=== PATIENT | female | born 2000 | race Caucasian/White ===

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

== ENCOUNTER → 2021-01-06 | Outpatient (CLI) | payer BC ==
--- NOTE | 2021-01-06 10:24 | Diagnostic Imaging Report ---
PROCEDURE: CT chest and abdomen without contrast. TECHNIQUE: Axial images were obtained from the thoracic inlet through the iliac crest without the administration of intravenous contrast. Auto Exposure Controls were utilized during the CT exam to meet ALARA standards for radiation dose reduction. INDICATION: Left-sided rib fractures FINDINGS: There are subtle lucent remnants of nondisplaced fractures anterolateral anterior distally at the left 5th and 6th rib levels. No overlying chest wall hematoma adjacent to the superficial cortex of the intact distal left 7th rib. There is a punctate metallic like radiopacity in the deep subcutaneous fat of 1 to 2 mm chronic. No adjacent fluid collection. No acute or displaced rib fracture deformity. No findings to suggest malunion or nonunion. No pleural hematoma, no pneumothorax and no suspicious pulmonary nodule or acute infiltrate. Spine, sternum, manubrium and diaphragms intact. The visualized portions of the shoulders intact. ABDOMEN: The gallbladder surgically absent. The liver, spleen, adrenals unopacified. Pancreas and unobstructed kidneys normal. The abdominal aorta is nonaneurysmal. The appendix visualized and appeared normal. No ascites, abscess, hematoma or acute fluid collection. No pneumatosis and no free air. No lymphadenopathy. The bony structures of the abdomen appeared intact. IMPRESSION: Chest shows healed or healing left 5th and 6th rib fracture lucencies and an old appearing punctate subcutaneous metallic foreign body superficially. Chest otherwise normal. The abdomen was unremarkable. No axillary, hilar or mediastinal lymphadenopathy. The visualized upper abdomen shows previous cholecystectomy with no acute finding. Subtle lucencies correspond to old likely healed and nondisplaced fractures of the 5th and 6th ribs distally with a likely chronic punctate subcutaneous metallic opacity. No findings of pulmonary parenchymal or pleural injury. Clear lungs with no suspicious mass. No aneurysm or effusion. No acute appearing abnormality. Dictated by: Dictated on workstation # [id number]
== END ==
LOC: RAD 10:00
PROVIDERS: ATTEND Nurse Practitioner Family
DX: S22.42XD Multiple fractures of ribs, left side, subsequent encounter for fracture with routine healing (principal); X58.XXXD Exposure to other specified factors, subsequent encounter
CPT/HCPCS: 71250; 74150

== ENCOUNTER 2021-07-12 11:17 | Emergency (ER) | payer BC ==
[~2021-07-12] VITALS: Ht 165.1 cm; Wt 63.5 kg
--- NOTE | 2021-07-12 11:58 | ED Abdominal Pain ---
General Chief Complaint: Abdominal/GI Problems Stated Complaint: PELVIC PAIN, CRAMPING Source of Information: Patient History of Present Illness Date Seen by Provider: Jul 12, 2021 Time Seen by Provider: 11:55 Initial Comments Patient is a 20-year-old female presents ED with lower abdominal pain. She reports a sharp pain in her lower abdomen. She states in May she had a ovarian cyst that ruptured that required surgery. Was found to have endometriosis. Gynecology is located in [place]. She states she started her menstrual cycle yesterday with heavier bleeding. Difficulty inserting a tampon secondary to the pain versus swelling. Denies any vaginal discharge. She reports frequent urination without any specific pain. She reports vomiting in the morning but that is chronic. Few episodes of watery diarrhea. History of cholecystectomy. Father at bedside. Patient did take a hydrocodone this morning without much pain improvement. Difficulty standing, ambulating and doing her daily activities secondary to the pain. Allergies and Home Medications Allergies Coded Allergies: No Known Drug Allergies (Unverified , 08/01/16) Patient Home Medication List Home Medication List Reviewed: Yes Hydrocodone/Acetaminophen (Hydrocodone-Acetamin 5-325 mg) 1 Each Tablet, 1-2 TAB PO Q4H PRN for PAIN-MODERATE (5-7) Prescribed by: MAXIMILIAN TURCIOS on 07/12/21 1348 Metoclopramide HCl (Reglan) 5 Mg Tablet, 5 MG PO QID Prescribed by: BRIGID ARRIAGA on 08/09/19 1243 Pantoprazole Sodium (Protonix) 40 Mg Tablet.dr, 40 MG PO DAILY Prescribed by: BRIGID ARRIAGA on 08/09/19 1243 [bcp] , 1 TAB PO DAILY, (Reported) Entered as Reported by: SAVITA ROCK on 08/08/19 4479 Review of Systems Review of Systems Constitutional: No chills, No diaphoresis, No dizziness, No fever, No malaise Respiratory: Denies Cough, Denies SOA With Exertion, Denies SOA at Rest Gastrointestinal: Abdominal Pain, Diarrhea, Vomiting Genitourinary: Denies Burning, Denies Frequency, Denies Flank Pain, Denies Pain Musculoskeletal: No back pain, No joint pain, No joint swelling, No muscle pain Skin: No change in color, No change in hair/nails Psychiatric/Neurological: Denies Anxiety, Denies Depressed All Other Systems Reviewed Negative Unless Noted: Yes Past Hyxhcgb-Llcgwy-Ohgucv Hx Immunizations Up To Date Tetanus Booster (TDap): Unknown Seasonal Allergies Seasonal Allergies: No Past Medical History Surgeries: Yes (several for slipping rib syndrome) Gallbladder, Tonsillectomy Respiratory: No Currently Using CPAP: No Currently Using BIPAP: No Cardiac: No Neurological: No Female Reproductive Disorders: Denies Sexually Transmitted Disease: No HIV/AIDS: No Genitourinary: No Gastrointestinal: Yes (n&v) Gastroesophageal Reflux Musculoskeletal: Yes ((slipped rib syndrome)) Endocrine: No HEENT: No Loss of Vision: Denies Hearing Impairment: Denies Cancer: No Psychosocial: No Integumentary: No Blood Disorders: No Physical Exam Vital Signs Vital Signs - First Documented 07/12/21 11:32 Temp 36.4 Pulse 113 Resp 19 B/P (MAP) 120/80 (93) Pulse Ox 99 O2 Delivery Room Air Capillary Refill : Height/Weight/BMI Height: 5'4.00" Weight: 125lbs. oz. 56.282441go; 20.61 BMI Method:Stated General Appearance: WD/WN, no apparent distress HEENT: PERRL/EOMI, normal ENT inspection, TMs normal, pharynx normal Neck: non-tender, full range of motion, supple, normal inspection Respiratory: chest non-tender, lungs clear, normal breath sounds, no respiratory distress, no accessory muscle use Cardiovascular: regular rate, rhythm, no edema Gastrointestinal: normal bowel sounds, non tender, soft, no organomegaly Extremities: normal range of motion, non-tender, normal inspection, no pedal edema, no calf tenderness Back: normal inspection, no CVA tenderness, no vertebral tenderness Pelvic: other (Suprapubic tenderness, left lower quadrant tenderness. Normal bowel sounds are. No rebound or guarding.) Neurologic/Psychiatric: sandwich artist II-XII nml as tested, no motor/sensory deficits, alert, normal mood/affect, oriented x 3 Skin: normal color, warm/dry Progress/Results/Core Measures Results/Orders Lab Results Laboratory Tests Test 07/12/21 11:32 07/12/21 12:13 Range/Units Urine Color PORSCHE H Urine Clarity SL CLOUDY Urine pH 6.0 5-9 Urine Specific [place] >=1.030 1.016-1.022 Urine Protein 1+ H NEGATIVE Urine Glucose (UA) NEGATIVE NEGATIVE Urine Ketones NEGATIVE NEGATIVE Urine Nitrite NEGATIVE NEGATIVE Urine Bilirubin 1+ H NEGATIVE Urine Urobilinogen 0.2 < = 1.0 MG/DL Urine Leukocyte Esterase TRACE H NEGATIVE Urine RBC (Auto) 3+ H NEGATIVE Urine RBC TNTC H /HPF Urine WBC 2-5 /HPF Urine Squamous Epithelial Cells NONE /HPF Urine Crystals NONE /LPF Urine Bacteria TRACE /HPF Urine Casts NONE /LPF Urine Mucus NEGATIVE /LPF Urine Culture Indicated NO Urine Test NEGATIVE NEGATIVE White Blood Count 6.9 4.3-11.0 10^3/uL Red Blood Count 4.70 3.80-5.11 10^6/uL Hemoglobin 13.5 11.5-16.0 g/dL Hematocrit 43 35-52 % Mean Corpuscular Volume 91 80-99 fL Mean Corpuscular Hemoglobin 29 25-34 pg Mean Corpuscular Hemoglobin Concent 32 32-36 g/dL Red Cell Distribution Width 11.9 10.0-14.5 % Platelet Count 248 130-400 10^3/uL Mean Platelet Volume 11.4 9.0-12.2 fL Immature Granulocyte % (Auto) 0 % Neutrophils (%) (Auto) 63 42-75 % Lymphocytes (%) (Auto) 25 12-44 % Monocytes (%) (Auto) 6 0-12 % Eosinophils (%) (Auto) 5 0-10 % Basophils (%) (Auto) 1 0-10 % Neutrophils # (Auto) 4.4 1.8-7.8 10^3/uL Lymphocytes # (Auto) 1.7 1.0-4.0 10^3/uL Monocytes # (Auto) 0.4 0.0-1.0 10^3/uL Eosinophils # (Auto) 0.3 0.0-0.3 10^3/uL Basophils # (Auto) 0.1 0.0-0.1 10^3/uL Immature Granulocyte # (Auto) 0.0 0.0-0.1 10^3/uL Neutrophils % (Manual) 66 % Lymphocytes % (Manual) 24 % Monocytes % (Manual) 6 % Eosinophils % (Manual) 3 % Basophils % (Manual) 1 % Band Neutrophils 0 % Blood Morphology Comment NORMAL Sodium Level 142 135-145 MMOL/L Potassium Level 4.3 3.6-5.0 MMOL/L Chloride Level 107 98-107 MMOL/L Carbon Dioxide Level 22 21-32 MMOL/L Anion Gap 13 5-14 MMOL/L Blood Urea Nitrogen 14 7-18 MG/DL Creatinine 0.77 0.60-1.30 MG/DL Estimat Glomerular Filtration Rate 114 BUN/Creatinine Ratio 18 Glucose Level 94 70-105 MG/DL Calcium Level 9.5 8.5-10.1 MG/DL Corrected Calcium 9.2 8.5-10.1 MG/DL Total Bilirubin 0.7 0.1-1.0 MG/DL Aspartate Amino Transf (AST/SGOT) 9 5-34 U/L Alanine Aminotransferase (ALT/SGPT) 7 0-55 U/L Alkaline Phosphatase 50 40-136 U/L Total Protein 7.5 6.4-8.2 GM/DL Albumin 4.4 3.2-4.5 GM/DL Lipase 19 8-78 U/L My Orders Orders - LONA VOGT Urinalysis (07/12/21 11:24) Hcg,Qualitative Urine (07/12/21 11:24) Cbc And Manual Diff (07/12/21 11:54) Comprehensive Metabolic Panel (07/12/21 11:54) Lipase (07/12/21 11:54) Ketorolac Injection (Toradol Injection) (07/12/21 12:00) Us Pelvic (Non Ob)05020 (07/12/21 11:54) Hydrocodone/Apap 5/325 Tablet (Lortab 5 (07/12/21 12:45) Medications Given in ED Current Medications Medications Dose Ordered Sig/Krunal Route Start Time Stop Time Status Last Admin Dose Admin Acetaminophen/ Hydrocodone Bitart 1 ea ONCE ONCE PO 07/12/21 12:45 07/12/21 12:46 DC 07/12/21 12:57 1 EA Ketorolac Tromethamine 30 mg ONCE ONCE IVP 07/12/21 12:00 07/12/21 12:01 DC 07/12/21 12:14 30 MG Vital Signs/I&O 07/12/21 11:32 Temp 36.4 Pulse 113 Resp 19 B/P (MAP) 120/80 (93) Pulse Ox 99 O2 Delivery Room Air Departure Communication (Admissions) Patient is a 20-year-old female presents ED with father for pelvic pain. History of endometriosis. She states she was evaluated and diagnosed outpatient surgery by her woodwork teacher at [place]. Similar type pain. Started her menstrual cycle. She reports vaginal bleeding with significant pain. Ultrasound was ordered to rule out ovarian torsion acute abnormality. No free pelvic fluid or ovarian torsion. Lab work was otherwise unremarkable. Urinalysis negative for infection. Refused pelvic exam. Negative for . She has no right lower quadrant tenderness. No fever or elevated white blood count. Similar type pain. Requesting pain medication which was provided here. She is scheduled to follow-up with her woodwork teacher on Monday from previous surgery. Patient is stable here in the ED. Pain has improved. We will provide a few days worth of pain medication as she has a extensive medical history and be evaluated at [facility], and [facility] [place], [place] due to slipping ribs with extensive surgery. She has been on narcotics in the past father requesting a fever days worth of pain medication. Return precaution were discussed with father and patient. If worsening pain, fever to return back to ED for further evaluation peer Impression Primary Impression: Abdominal pain Disposition: HOME, SELF-CARE Condition: Stable Departure-Patient Inst. Decision time for Depature: 13:46 Referrals: CLAIRE STRAUSS DO (PCP) Primary Care Physician SELENA STRAUSS DNP (Family) Primary Care Physician Patient Instructions: Abdominal Pain, Adult ED Scripts Hydrocodone/Acetaminophen (Hydrocodone-Acetamin 5-325 mg) 1 Each Tablet 1-2 TAB PO Q4H PRN for PAIN-MODERATE (5-7), #14 TAB Prov: LONA VOGT 07/12/21 LONA VOGT Jul 12, 2021 11:58
[2021-07-12] MEDS ORDERED: KETOROLAC 30 MG/ML VIAL IVP ONE (12:00)
[2021-07-12 12:23] LABS: BASOPHILS # (AUTO) 0.1 10^3/uL (0.0-0.1); BASOPHILS % (AUTO) 1 % (0-10); EOSINOPHILS # (AUTO) 0.3 10^3/uL (0.0-0.3); EOSINOPHILS % (AUTO) 5 % (0-10); HEMATOCRIT 43 % (35-52); HEMOGLOBIN 13.5 g/dL (11.5-16.0); LYMPHOCYTES # (AUTO) 1.7 10^3/uL (1.0-4.0); LYMPHOCYTES % (AUTO) 25 % (12-44); MEAN CORPUSCULAR HEMOGLOBIN 29 pg (25-34); MEAN CORPUSCULAR HGB CONC 32 g/dL (32-36); MEAN CORPUSCULAR VOLUME 91 fL (80-99); MEAN PLATELET VOLUME 11.4 fL (9.0-12.2); MONOCYTES # (AUTO) 0.4 10^3/uL (0.0-1.0); MONOCYTES % (AUTO) 6 % (0-12); NEUTROPHILS # (AUTO) 4.4 10^3/uL (1.8-7.8); NEUTROPHILS % (AUTO) 63 % (42-75); PLATELET COUNT 248 10^3/uL (130-400); WHITE BLOOD COUNT 6.9 10^3/uL (4.3-11.0)
[2021-07-12 12:35] LABS: ALBUMIN 4.4 GM/DL (3.2-4.5)
[2021-07-12 12:36] LABS: POTASSIUM 4.3 MMOL/L (3.6-5.0)
[2021-07-12 12:37] LABS: CALCIUM 9.5 MG/DL (8.5-10.1)
[2021-07-12 12:38] LABS: TOTAL PROTEIN 7.5 GM/DL (6.4-8.2)
[2021-07-12 12:40] LABS: BILIRUBIN,TOTAL 0.7 MG/DL (0.1-1.0)
[2021-07-12 12:42] LABS: CREATININE SERUM 0.77 MG/DL (0.60-1.30)
--- NOTE | 2021-07-12 12:42 | Diagnostic Imaging Report ---
PROCEDURE: US PELVIC (NON OB) TECHNIQUE: Multiple real-time grayscale images were obtained over the pelvis in various projections transabdominally. INDICATION: Pelvic pain The anteverted uterus measures 6.4 x 3.8 x 3.1 cm with normal endometrial thickness of 0.4 cm. There is no evidence of uterine mass. Ovaries are also unremarkable with blood flow confirmed bilaterally. No pelvic fluid is seen IMPRESSION: Unremarkable pelvic ultrasound. Dictated by: Dictated on workstation # [id number]
[2021-07-12] MEDS ORDERED: HYDROcodone/APAP 5 MG/325 MG (LORTAB) TAB PO ONE (12:45)
[2021-07-12 12:47] LABS: BAND NEUTROPHILS 0 %; BASOPHILS % (MANUAL) 1 %; EOSINOPHILS % (MANUAL) 3 %; LYMPHOCYTES % (MANUAL) 24 %; MONOCYTES % (MANUAL) 6 %; NEUTROPHILS % (MANUAL) 66 %; RBC MORPH NORMAL
[2021-07-12 13:26] LABS: CLARITY,URINE SL CLOUDY; COLOR,URINE AMBER; GLUCOSE, URINE (UA) NEGATIVE (NEGATIVE); KETONES,URINE NEGATIVE (NEGATIVE); LEUKOCYTE ESTERASE ,URINE TRACE (NEGATIVE); NITRITE,URINE NEGATIVE (NEGATIVE); PROTEIN,URINE 1+ (NEGATIVE)
[2021-07-12 13:36] LABS: BACTERIA,URINE TRACE /HPF; BILIRUBIN,URINE 1+ (NEGATIVE); RBC,URINE TNTC /HPF
[2021-07-12] MEDS ORDERED: ACHD5005 PO (13:47)
[2021-07-12 13:54] VITALS: BP 126/67
== END 2021-07-12 13:55 | disposition home or self-care (01) ==
LOC: EDUNIT# 11:17 → ER 11:18
DX: R10.30 Lower abdominal pain, unspecified (principal); K21.9 Gastro-esophageal reflux disease without esophagitis; Z90.49 Acquired absence of other specified parts of digestive tract; Z79.899 Other long term (current) drug therapy
CPT/HCPCS: 36415; 76856; 80053; 81000; 83690; 84703; 85007; 85027

== ENCOUNTER 2022-04-01 11:19 | Emergency (ER) | payer BC ==
[~2022-04-01 11:19] MED LIST changes: +ACHD5005 PO
--- NOTE | 2022-04-01 11:46 | ED Respiratory ---
General Chief Complaint: Respiratory Problems Stated Complaint: SOA - BACK PAIN Nursing Triage Note: PT AMB TO [facility] 5 WITH C/O R BREAST TO BACK PAIN, SOB THAT STARTED ABOUT 30 MIN [facility]. PT WAS AT PCP OFFICE [facility] AND WAS TOLD TO COME TO ER [facility]. PT HAD RECENT LUNG/RIB SURGERY IN [facility] Source: patient Exam Limitations: no limitations History of Present Illness Date Seen by Provider: Apr 01, 2022 Time Seen by Provider: 11:15 Initial Comments This is a 21-year-old female with history of slipping rib syndrome who presented to the ER per her primary care office for concerns of sudden onset shortness of breath that occurred approximate 30 minutes prior to arrival. 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 Her last procedure was in [place] 1 month ago, they plated her second right bilateral ribs and re-stabilized her lower right rib region. Had small pneumo after procedure which required chest tube and additional 5 day hospitalization. No issues since discharge. No fever, chills, nausea, vomiting, diarrhea, abdominal pain, dysuria, or hematuria. Allergies and Home Medications Allergies Coded Allergies: No Known Drug Allergies (Unverified , 08/01/16) Patient Home Medication List Home Medication List Reviewed: Yes Hydrocodone/Acetaminophen (Hydrocodone-Acetamin 5-325 mg) 1 Each Tablet, 1-2 TAB PO Q4H PRN for PAIN-MODERATE (5-7) Prescribed by: MAXIMILIAN TURCIOS on 07/12/21 1348 Hydrocodone/Acetaminophen (Hydrocodone-Acetamin 5-325 mg) 5 Mg-325 Mg Tablet, 1 TAB PO Q4H PRN for PAIN-MODERATE (5-7) Prescribed by: JAY JAY RINCON on 04/01/22 1503 Metoclopramide HCl (Reglan) 5 Mg Tablet, 5 MG PO QID Prescribed by: BRIGID ARRIAGA on 08/09/19 1243 Pantoprazole Sodium (Protonix) 40 Mg Tablet.dr, 40 MG PO DAILY Prescribed by: BRIGID ARRIAGA on 08/09/19 1243 [bcp] , 1 TAB PO DAILY, (Reported) Entered as Reported by: SAVITA ROCK on 08/08/19 5089 Review of Systems Review of Systems Constitutional: see HPI Past Hqbcbdy-Rrwwsi-Kvvtoe Hx Patient Social History Tobacco Use?: No Use of E-Cig and/or Vaping dev: No Alcohol Use?: No Pt feels they are or have been: No Immunizations Up To Date Tetanus Booster (TDap): Unknown Seasonal Allergies Seasonal Allergies: No Past Medical History Surgery/Hospitalization HX: ENDOMETRIOSIS, PCOS LUNG/ RIB SURGERY, TONSILS, RONN Surgeries: Yes (several for slipping rib syndrome) Gallbladder, Tonsillectomy Respiratory: No Currently Using CPAP: No Currently Using BIPAP: No Cardiac: No Neurological: No Last Menstrual Period: Feb 27, 2022 Female Reproductive Disorders: Denies Sexually Transmitted Disease: No HIV/AIDS: No Genitourinary: No Gastrointestinal: Yes (n&v) Gastroesophageal Reflux Musculoskeletal: Yes ((slipped rib syndrome)) Endocrine: No HEENT: No Loss of Vision: Denies Hearing Impairment: Denies Cancer: No Psychosocial: No Integumentary: No Blood Disorders: No Physical Exam Vital Signs - First Documented 04/01/22 04/01/22 11:26 11:38 Temp 36.6 Pulse 91 Resp 25 B/P (MAP) 132/81 (98) O2 Delivery Room Air Capillary Refill : Height: 5'4.00" Weight: 125lbs. oz. 56.945560is; 23.00 BMI Method:Stated General Appearance: WD/WN, no apparent distress Eyes: Left Eye EOMI; Bilateral Eye Normal Inspection, Bilateral Eye PERRL HEENT: PERRL/EOMI, normal ENT inspection Neck: full range of motion, normal inspection Respiratory: lungs clear, no respiratory distress, no accessory muscle use; No plerual rub; other (decreased breath sounds right lung base ) Cardiovascular: regular rate, rhythm, no murmur Gastrointestinal: normal bowel sounds, non tender, soft Extremities: normal range of motion, normal inspection Neurologic/Psychiatric: no motor/sensory deficits, alert, normal mood/affect, oriented x 3 Skin: normal color, warm/dry Progress/Results/Core Measures Suspected Sepsis SIRS Temperature: Pulse: 91 Respiratory Rate: 25 Laboratory Tests 04/01/22 11:35: White Blood Count 9.0 Blood Pressure 132 /81 Mean: 98 Laboratory Tests 04/01/22 11:35: Creatinine 0.76, Platelet Count 249, Total Bilirubin 0.2 Results/Orders Lab Results Laboratory Tests Test 04/01/22 11:35 04/01/22 12:15 Range/Units White Blood Count 9.0 4.3-11.0 10^3/uL Red Blood Count 3.95 3.80-5.11 10^6/uL Hemoglobin 11.5 11.5-16.0 g/dL Hematocrit 36 35-52 % Mean Corpuscular Volume 90 80-99 fL Mean Corpuscular Hemoglobin 29 25-34 pg Mean Corpuscular Hemoglobin Concent 32 32-36 g/dL Red Cell Distribution Width 12.2 10.0-14.5 % Platelet Count 249 130-400 10^3/uL Mean Platelet Volume 12.0 9.0-12.2 fL Immature Granulocyte % (Auto) 0 % Neutrophils (%) (Auto) 68 42-75 % Lymphocytes (%) (Auto) 24 12-44 % Monocytes (%) (Auto) 5 0-12 % Eosinophils (%) (Auto) 2 0-10 % Basophils (%) (Auto) 1 0-10 % Neutrophils # (Auto) 6.1 1.8-7.8 10^3/uL Lymphocytes # (Auto) 2.2 1.0-4.0 10^3/uL Monocytes # (Auto) 0.5 0.0-1.0 10^3/uL Eosinophils # (Auto) 0.2 0.0-0.3 10^3/uL Basophils # (Auto) 0.1 0.0-0.1 10^3/uL Immature Granulocyte # (Auto) 0.0 0.0-0.1 10^3/uL Sodium Level 139 135-145 MMOL/L Potassium Level 4.0 3.6-5.0 MMOL/L Chloride Level 109 H 98-107 MMOL/L Carbon Dioxide Level 23 21-32 MMOL/L Anion Gap 7 5-14 MMOL/L Blood Urea Nitrogen 14 7-18 MG/DL Creatinine 0.76 0.60-1.30 MG/DL Estimat Glomerular Filtration Rate 115 BUN/Creatinine Ratio 18 Glucose Level 95 70-105 MG/DL Calcium Level 9.1 8.5-10.1 MG/DL Corrected Calcium 9.3 8.5-10.1 MG/DL Total Bilirubin 0.2 0.1-1.0 MG/DL Aspartate Amino Transf (AST/SGOT) 10 5-34 U/L Alanine Aminotransferase (ALT/SGPT) 7 0-55 U/L Alkaline Phosphatase 51 40-136 U/L Total Protein 6.9 6.4-8.2 GM/DL Albumin 3.8 3.2-4.5 GM/DL Urine Color YELLOW Urine Clarity CLEAR Urine pH 6.0 5-9 Urine Specific Delta >=1.030 1.016-1.022 Urine Protein NEGATIVE NEGATIVE Urine Glucose (UA) NEGATIVE NEGATIVE Urine Ketones NEGATIVE NEGATIVE Urine Nitrite NEGATIVE NEGATIVE Urine Bilirubin NEGATIVE NEGATIVE Urine Urobilinogen 0.2 < = 1.0 MG/DL Urine Leukocyte Esterase NEGATIVE NEGATIVE Urine RBC (Auto) TRACE-I H NEGATIVE Urine RBC RARE /HPF Urine WBC 0-2 /HPF Urine Squamous Epithelial Cells 0-2 /HPF Urine Crystals NONE /LPF Urine Bacteria FEW H /HPF Urine Casts NONE /LPF Urine Mucus SMALL H /LPF Urine Culture Indicated NO My Orders Orders - JAY JAY RINCON APRN Chest Pa/Lat (2 View) (04/01/22 11:22) Fentanyl Inj (Sublimaze Injection) (04/01/22 12:00) Cbc With Automated Diff (04/01/22 11:54) Comprehensive Metabolic Panel (04/01/22 11:54) Ketorolac Injection (Toradol Injection) (04/01/22 12:00) Ct Chest W (04/01/22 11:57) Urine Bedside (04/01/22 12:16) Ua Culture If Indicated (04/01/22 12:17) Iohexol Injection (Omnipaque 350 Mg/Ml 1 (04/01/22 12:45) Received Contrast (Hold Metformin- Contr (04/01/22 12:45) Ns (Ivpb) (Sodium Chloride 0.9% Ivpb Bag (04/01/22 12:45) Fentanyl Inj (Sublimaze Injection) (04/01/22 13:15) Medications Given in ED Vital Signs/I&O 04/01/22 04/01/22 04/01/22 11:26 11:38 13:32 Temp 36.6 36.6 Pulse 91 74 Resp 25 18 B/P (MAP) 132/81 (98) 118/58 O2 Delivery Room Air Room Air Capillary Refill : Blood Pressure Mean: 98 Diagnostic Imaging Diagonstic Imaging: Xray Plain Films/CT/US/NM/MRI: chest Comments [facility], [place] NAME: MARY BETH NIX [facility] REC#: [id number] PT STATUS: REG ER : 2000 PHYSICIAN: JAY JAY RINCON APRN ADMIT DATE: 04/01/22/ER Signed Date of Exam:04/01/22 CHEST PA/LAT (2 VIEW) EXAMINATION: Chest 2 view HISTORY: SOA COMPARISON: 07/11/2018 FINDINGS: Heart size and pulmonary vasculature are normal. The lungs are clear without consolidation, pleural effusion, or pneumothorax. The osseous structures are intact. Surgical changes of the bilateral ribs. IMPRESSION: 1. No acute radiographic abnormality in the chest. Dictated by: Dictated on workstation # [id number] Dict: 04/01/22 1151 Trans: 04/01/22 1200 [id number] Interpreted by: LATONYA PATEL DO Electronically signed by: LATONYA PATEL DO 04/01/22 1200 Diagonstic Imaging: CT Plain Films/CT/US/NM/MRI: chest Comments [facility], [place] NAME: MARY BETH NIX [facility] REC#: [id number] PT STATUS: DEP ER : 2001 PHYSICIAN: JAY JAY RINCON APRN ADMIT DATE: 04/01/22/ER Signed Date of Exam:04/01/[address] CHEST W TECHNIQUE: Multiple contiguous axial images were obtained through the chest with the use of intravenous contrast. All CT scans use one or more of the following dose optimizing techniques: Automated exposure control, MA and/or KvP adjustment based on a patient size and exam type, or iterative reconstruction. INDICATION: Right-sided rib pain. COMPARISON: 01/06/2021. FINDINGS: Lungs and airway: No abnormality in the airway. The lungs are clear. No pneumonia or edema. No suspicious pulmonary nodules. Pleura: No pleural effusion or pneumothorax. Heart and mediastinum: No supraclavicular or axillary lymphadenopathy. No mediastinal or hilar lymphadenopathy. No central pulmonary emboli. Please note, exam is timed to evaluate for pulmonary emboli. Normal-caliber thoracic aorta without dissection. Upper abdomen: No acute abnormality in the upper abdomen. Cholecystectomy. Musculoskeletal: Since prior CT, plate and screws have been placed across the sternum and second ribs. The right ninth rib has irregularity with heterotopic ossification along its lateral margin. This is not an acute injury but more chronic in nature. There is also chronic deformity of the anterior lower left ribs. These sites may be due to bone graft harvesting. IMPRESSION: 1. No acute rib fracture. Chronic irregularities of the lateral aspect of the bilateral lower ribs is new since prior examination. This may be due to bone graft harvesting at these sites. 2. No acute intrathoracic process. Dictated by: Dictated on workstation # [id number] Dict: 04/01/22 1303 Trans: 04/01/22 1606 [id number] Interpreted by: CLEM MYERS MD Electronically signed by: CLEM MYERS MD 04/01/22 1606 Departure Impression Primary Impression: Rib pain on right side Disposition: 01 HOME, SELF-CARE Condition: Improved Departure-Patient Inst. Decision time for Depature: 13:21 Referrals: CLAIRE STRAUSS DO (PCP) Primary Care Physician SELENA STRAUSS DNP (Family) Primary Care Physician Patient Instructions: Acute Pain, Adult Add. Discharge Instructions: Plan: 1. Call your specialist and update him on today's findings, you have been given copies of your labs and imaging. 2. Take Tylenol ibuprofen as needed for pain per package. 3. If you have any increased shortness of breath, fever, chills or any other new or worsening symptoms please return to the emergency department. 4. Follow-up with your primary care provider as needed. All discharge instructions reviewed with patient and/or family. Voiced unde rstanding. Scripts Hydrocodone/Acetaminophen (Hydrocodone-Acetamin 5-325 mg) 5 Mg-325 Mg Tablet 1 TAB PO Q4H PRN for PAIN-MODERATE (5-7), #10 TAB 0 Refills Prov: JAY JAY RINCON APRN 04/01/22 Copy Copies To 1: CLAIRE STRAUSS STORMY D SHANK BURNISHER Apr 01, 2022 11:46
--- NOTE | 2022-04-01 11:52 | Diagnostic Imaging Report ---
EXAMINATION: Chest 2 view HISTORY: SOA COMPARISON: 07/11/2018 FINDINGS: Heart size and pulmonary vasculature are normal. The lungs are clear without consolidation, pleural effusion, or pneumothorax. The osseous structures are intact. Surgical changes of the bilateral ribs. IMPRESSION: 1. No acute radiographic abnormality in the chest. Dictated by: Dictated on workstation # [id number]
[2022-04-01] MEDS ORDERED: KETOROLAC 30 MG/ML VIAL IVP ONE (12:00)
[2022-04-01] MEDS ORDERED: fentaNYL INJ 100 MCG/2 ML AMP IVP ONE ×2 (12:00→13:15)
[2022-04-01 12:08] LABS: BASOPHILS # (AUTO) 0.1 10^3/uL (0.0-0.1); BASOPHILS % (AUTO) 1 % (0-10); EOSINOPHILS # (AUTO) 0.2 10^3/uL (0.0-0.3); EOSINOPHILS % (AUTO) 2 % (0-10); HEMATOCRIT 36 % (35-52); HEMOGLOBIN 11.5 g/dL (11.5-16.0); LYMPHOCYTES # (AUTO) 2.2 10^3/uL (1.0-4.0); LYMPHOCYTES % (AUTO) 24 % (12-44); MEAN CORPUSCULAR HEMOGLOBIN 29 pg (25-34); MEAN CORPUSCULAR HGB CONC 32 g/dL (32-36); MEAN CORPUSCULAR VOLUME 90 fL (80-99); MONOCYTES # (AUTO) 0.5 10^3/uL (0.0-1.0); MONOCYTES % (AUTO) 5 % (0-12); NEUTROPHILS # (AUTO) 6.1 10^3/uL (1.8-7.8); NEUTROPHILS % (AUTO) 68 % (42-75); PLATELET COUNT 249 10^3/uL (130-400)
[2022-04-01 12:09] LABS: ALBUMIN 3.8 GM/DL (3.2-4.5)
[2022-04-01 12:11] LABS: CALCIUM 9.1 MG/DL (8.5-10.1)
[2022-04-01 12:12] LABS: TOTAL PROTEIN 6.9 GM/DL (6.4-8.2)
[2022-04-01 12:14] LABS: BILIRUBIN,TOTAL 0.2 MG/DL (0.1-1.0)
[2022-04-01 12:15] LABS: CREATININE SERUM 0.76 MG/DL (0.60-1.30)
[2022-04-01 12:36] LABS: BILIRUBIN,URINE NEGATIVE (NEGATIVE); CLARITY,URINE CLEAR; COLOR,URINE YELLOW; GLUCOSE, URINE (UA) NEGATIVE (NEGATIVE); KETONES,URINE NEGATIVE (NEGATIVE); LEUKOCYTE ESTERASE ,URINE NEGATIVE (NEGATIVE); NITRITE,URINE NEGATIVE (NEGATIVE); PROTEIN,URINE NEGATIVE (NEGATIVE)
[2022-04-01 12:45] LABS: BACTERIA,URINE FEW /HPF; RBC,URINE RARE /HPF; SQUAMOUS EPITHELIAL CELL,UR 0-2 /HPF; WBC,URINE 0-2 /HPF
[2022-04-01] MEDS ORDERED: IOHEXOL 350 MG/ML 100 ML (OMNIPAQUE 350) VIAL IV ONE (12:45)
[2022-04-01] MEDS ORDERED: HOLD METFORMIN - RECEIVED CONTRAST 20 ML VIAL IV SCH (12:45)
[2022-04-01] MEDS ORDERED: NS 100 ML (IVPB) BAG IV ONE (12:45)
--- NOTE | 2022-04-01 13:15 | Diagnostic Imaging Report ---
CT CHEST W TECHNIQUE: Multiple contiguous axial images were obtained through the chest with the use of intravenous contrast. All CT scans use one or more of the following dose optimizing techniques: Automated exposure control, MA and/or KvP adjustment based on a patient size and exam type, or iterative reconstruction. INDICATION: Right-sided rib pain. COMPARISON: 01/06/2021. FINDINGS: Lungs and airway: No abnormality in the airway. The lungs are clear. No pneumonia or edema. No suspicious pulmonary nodules. Pleura: No pleural effusion or pneumothorax. Heart and mediastinum: No supraclavicular or axillary lymphadenopathy. No mediastinal or hilar lymphadenopathy. No central pulmonary emboli. Please note, exam is timed to evaluate for pulmonary emboli. Normal-caliber thoracic aorta without dissection. Upper abdomen: No acute abnormality in the upper abdomen. Cholecystectomy. Musculoskeletal: Since prior CT, plate and screws have been placed across the sternum and second ribs. The right ninth rib has irregularity with heterotopic ossification along its lateral margin. This is not an acute injury but more chronic in nature. There is also chronic deformity of the anterior lower left ribs. These sites may be due to bone graft harvesting. IMPRESSION: 1. No acute rib fracture. Chronic irregularities of the lateral aspect of the bilateral lower ribs is new since prior examination. This may be due to bone graft harvesting at these sites. 2. No acute intrathoracic process. Dictated by: Dictated on workstation # [id number]
[2022-04-01 13:32] VITALS: BP 118/58
[2022-04-01] MEDS ORDERED: ACHD5005 PO (15:03)
== END 2022-04-01 13:33 | disposition home or self-care (01) ==
LOC: EDUNIT# 11:19 → ER 11:20
DX: R07.81 Pleurodynia (principal); Z87.39 Personal history of other diseases of the musculoskeletal system and connective tissue; Z98.890 Other specified postprocedural states; Z28.310 Unvaccinated for COVID-19
CPT/HCPCS: 36415; 71046; 71260; 80053; 81000; 84703; 85025

== ENCOUNTER → 2022-07-29 | Outpatient (CLI) | payer BC ==
--- NOTE | 2022-07-29 09:16 | Diagnostic Imaging Report ---
CLINICAL INDICATION: Patient with right rib pain. History of slipping rib syndrome. Most recent surgery for ribs was 04/2022. EXAM: Axial CT scan of the chest performed without IV contrast. Sagittal and coronal reformatted images were created. COMPARISON: CT scan of the chest with contrast dated 04/01/2022. FINDINGS: The lungs are clear. There is no pleural effusion or pneumothorax. Mediastinal structures are unremarkable. There is no mediastinal or hilar lymphadenopathy. There is no axillary lymphadenopathy. Limited visualization of the thyroid gland is unremarkable. Extrathoracic soft tissues are unremarkable. Limited visualization of the upper abdominal structures shows no significant abnormality. Cholecystectomy changes are seen. There are stable postoperative changes with reconstruction plate and screws seen overlying the anterior aspects of the bilateral T2 ribs and anterior aspect of the left T5 rib. There is stable bony irregularity. There are slightly hypertrophic bony changes involving the anterior lower aspects of the mid to lower ribs. There is no acute rib fracture seen. Thoracic spine shows small chronic Schmorl's nodes involving the lower lumbar region. IMPRESSION: 1: Stable postop changes to the anterior aspects of the ribs bilaterally. There is no acute rib fracture seen. 2: Otherwise, unremarkable CT scan of the chest. Dictated by: Dictated on workstation # [id number]
== END ==
LOC: RAD 07:37
PROVIDERS: ATTEND Nurse Practitioner Family
DX: M95.4 Acquired deformity of chest and rib (principal)
CPT/HCPCS: 71250

== ENCOUNTER 2022-10-10 16:11 | Emergency (ER) | payer BC ==
--- NOTE | 2022-10-10 16:35 | ED General ---
General Chief Complaint: General Problems/Pain Stated Complaint: BODY PAIN Source of Information: Patient Exam Limitations: No Limitations History of Present Illness Date Seen by Provider: Oct 10, 2022 Time Seen by Provider: 16:27 Initial Comments 22-year-old female presents to the emergency department today for rib pain. She states she has "slipping rib syndrome." Has had multiple rib surgeries. She states her parents kicked her out of her house and they will not let her go get her hydrocodone. She denies any injuries. No shortness of breath. All other systems reviewed and negative except documented per HPI. Voice recognition software was used to help create this chart Allergies and Home Medications Allergies Coded Allergies: No Known Drug Allergies (Unverified , 08/01/16) Patient Home Medication List Home Medication List Reviewed: Yes Hydrocodone/Acetaminophen (Hydrocodone-Acetamin 5-325 mg) 1 Each Tablet, 1-2 TAB PO Q4H PRN for PAIN-MODERATE (5-7) Prescribed by: MAXIMILIAN TURCIOS on 07/12/21 1348 Hydrocodone/Acetaminophen (Hydrocodone-Acetamin 5-325 mg) 5 Mg-325 Mg Tablet, 1 TAB PO Q4H PRN for PAIN-MODERATE (5-7) Prescribed by: JAY JAY RINCON on 04/01/22 1503 Metoclopramide HCl (Reglan) 5 Mg Tablet, 5 MG PO QID Prescribed by: BRIGID ARRIAGA on 08/09/19 1243 Pantoprazole Sodium (Protonix) 40 Mg Tablet.dr, 40 MG PO DAILY Prescribed by: BRIGID ARRIAGA on 08/09/19 1243 [bcp] , 1 TAB PO DAILY, (Reported) Entered as Reported by: SAVITA ROCK on 08/08/19 0927 Review of Systems Review of Systems Constitutional: see HPI Past Vdhceqo-Tjneqc-Nkdqwv Hx Patient Social History Tobacco Use?: No Use of E-Cig and/or Vaping dev: No Substance use?: No Alcohol Use?: No Immunizations Up To Date Tetanus Booster (TDap): Unknown Seasonal Allergies Seasonal Allergies: No Past Medical History Surgery/Hospitalization HX: ENDOMETRIOSIS, PCOS LUNG/ RIB SURGERY, TONSILS, RONN Surgeries: Yes (several for slipping rib syndrome) Gallbladder, Tonsillectomy Respiratory: No Currently Using CPAP: No Currently Using BIPAP: No Cardiac: No Neurological: No Female Reproductive Disorders: Denies Sexually Transmitted Disease: No HIV/AIDS: No Genitourinary: No Gastrointestinal: Yes (n&v) Gastroesophageal Reflux Musculoskeletal: Yes ((slipped rib syndrome)) Endocrine: No HEENT: No Loss of Vision: Denies Hearing Impairment: Denies Cancer: No Psychosocial: No Integumentary: No Blood Disorders: No Family Medical History Reviewed Nursing Family Hx No Pertinent Family Hx Physical Exam Vital Signs Vital Signs - First Documented 10/10/22 16:28 Temp 36.2 Pulse 103 Resp 18 B/P (MAP) 132/88 (103) Pulse Ox 98 O2 Delivery Room Air Capillary Refill : Height, Weight, BMI Height: 5'4.00" Weight: 125lbs. oz. 56.195739sb; 23.00 BMI Method:Stated General Appearance: No Apparent Distress, WD/WN HEENT: Normal ENT Inspection, Pharynx Normal Neck: Normal Inspection, Non Tender, Supple Respiratory: Lungs Clear, Normal Breath Sounds, No Accessory Muscle Use, No Respiratory Distress Cardiovascular: Regular Rate, Rhythm, No Murmur, Normal Peripheral Pulses Gastrointestinal: Normal Bowel Sounds, No Organomegaly, Non Tender, Soft Back: Normal Inspection, No Vertebral Tenderness Extremity: Normal Capillary Refill, Normal Inspection, Normal Range of Motion, Non Tender, No Calf Tenderness, No Pedal Edema Neurologic/Psychiatric: Alert, Oriented x3 Skin: Normal Color, Warm/Dry Progress/Results/Core Measures Suspected Sepsis SIRS Temperature: Pulse: Respiratory Rate: Blood Pressure / Mean: Results/Orders My Orders Orders - HAYES CANTU DO Ketorolac Injection (Toradol Injection) (10/10/22 16:45) Vital Signs/I&O 10/10/22 16:28 Temp 36.2 Pulse 103 Resp 18 B/P (MAP) 132/88 (103) Pulse Ox 98 O2 Delivery Room Air Capillary Refill : Departure Communication (Admissions) Patient is hemodynamically stable. She is mostly requesting refill of her hydrocodone medicine which she states is in her parents house. They do not want her in the home anymore. I advised we cannot refill her narcotic pain medication. I did give her IM Toradol and discharged with p.o. Toradol. I recommend she try according to police her friend to get her medications from the house to respect her parents wishes that should not be there. She is hemodynamically stable. No evidence for pneumothorax, or other emergent medical condition at this time. Impression Primary Impression: Chronic pain Qualified Codes: G89.29 - Other chronic pain Disposition: HOME, SELF-CARE Condition: Stable Departure-Patient Inst. Referrals: CLAIRE STRAUSS DO (PCP) Primary Care Physician SELENA STRAUSS, AMBAR (Family) Primary Care Physician Patient Instructions: CHRONIC PAIN Add. Discharge Instructions: supervisor cutting and boning Toradol and take it as needed. We cannot refill your hydrocodone. I recommend you talk to the police or a friend to try to coordinate them picking it up from the house for you. Return to the emergency department for any severe concerns. All discharge instructions reviewed with patient and/or family. Voiced understanding. Scripts Ketorolac Tromethamine (Ketorolac Tromethamine) 10 Mg Tablet 10 MG PO TID for Pain for 3 Days, #9 TAB Prov: HAYES CANTU DO 10/10/22 HAYES CANTU DO Oct 10, 2022 16:35
[2022-10-10] MEDS ORDERED: KETO10TA PO (16:39)
[2022-10-10] MEDS ORDERED: KETOROLAC 15 MG/ML VIAL IM ONE (16:45)
[2022-10-10 16:52] VITALS: BP 132/87
== END 2022-10-10 16:53 | disposition home or self-care (01) ==
LOC: EDUNIT# 16:11 → ER 16:13
DX: R07.81 Pleurodynia (principal); G89.29 Other chronic pain; Z79.891 Long term (current) use of opiate analgesic; Z87.828 Personal history of other (healed) physical injury and trauma; Z28.310 Unvaccinated for COVID-19
CPT/HCPCS: 99284

== ENCOUNTER 2022-12-01 15:37 | Emergency (ER) | payer BC ==
[~2022-12-01] VITALS: Ht 168 cm; Wt 62.0 kg
[~2022-12-01 15:37] MED LIST changes: +KETO10TA PO
[2022-12-01] MEDS ORDERED: KETOROLAC 30 MG/ML VIAL IM ONE (16:00)
[2022-12-01] MEDS ORDERED: ORPHENADRINE 60 MG/2 ML (NORFLEX) AMP (ED ONLY) IM ONE (16:00)
--- NOTE | 2022-12-01 16:03 | ED General ---
General Chief Complaint: Chest Wall Stated Complaint: RIB PAIN Nursing Triage Note: PT STATES HX OF RIB ISSUES, THINKS RIBS POPPED OUT ABOUT 4 DAYS AGO. LT SIDE 1ST AND 8TH RIBS Source of Information: Patient Exam Limitations: No Limitations History of Present Illness Date Seen by Provider: Dec 01, 2022 Time Seen by Provider: 16:01 Initial Comments Patient is a 22-year-old female presents to the ED for left-sided upper rib pain. History of slipping rib syndrome. History of similar type pain. she reports multiple surgeries since she was 13 years of age. Last surgery was in August in [place]. Increasing pain to her left upper ribs over the past 4 days. Pain is sharp constant. Patient tearful on arrival. Has been taken Tylenol without much improvement. She does have Robaxin which typically helps with her pain with no improvement over the past 4 days. Denies shortness of breath, cough, Coleman pain, fever, vomiting or diarrhea. She does follow-up with Kathleen Claire. Typically receives Toradol shot with improvement. She denies of any recent traumas or falls. History of pneumothorax. No known cardiac history Allergies and Home Medications Allergies Uncoded Allergies: "ANY NERVE MEDICATION" (Adverse Reaction, Intermediate, 12/01/22) TREMORS Patient Home Medication List Home Medication List Reviewed: Yes Hydrocodone/Acetaminophen (Hydrocodone-Acetamin 5-325 mg) 1 Each Tablet, 1-2 TAB PO Q4H PRN for PAIN-MODERATE (5-7) Prescribed by: MAXIMILIAN TURCIOS on 07/12/21 1348 Hydrocodone/Acetaminophen (Hydrocodone-Acetamin 5-325 mg) 5 Mg-325 Mg Tablet, 1 TAB PO Q4H PRN for PAIN-MODERATE (5-7) Prescribed by: JAY JAY RINCON on 04/01/22 1503 Ketorolac Tromethamine (Ketorolac Tromethamine) 10 Mg Tablet, 10 MG PO TID Prescribed by: HAYES CANTU MD on 10/10/22 1639 Ketorolac Tromethamine (Ketorolac Tromethamine) 10 Mg Tablet, 10 MG PO TID Prescribed by: MAXIMILIAN TURCIOS on 12/01/22 1708 Metoclopramide HCl (Reglan) 5 Mg Tablet, 5 MG PO QID Prescribed by: BRIGID ARRIAGA on 08/09/19 1243 Pantoprazole Sodium (Protonix) 40 Mg Tablet.dr, 40 MG PO DAILY Prescribed by: BRIGID ARRIAGA on 08/09/19 1243 [bcp] , 1 TAB PO DAILY, (Reported) Entered as Reported by: SAVITA ROCK on 08/08/19 0942 Discontinued Medications Ketorolac Tromethamine (Ketorolac Tromethamine) 10 Mg Tablet, 10 MG PO TID Prescribed by: MAXIMILIAN TURCIOS on 12/01/22 2546 Review of Systems Review of Systems Constitutional: No chills, No diaphoresis, No fever, No malaise, No weakness EENTM: No hearing loss, No ear pain, No blurred vision, No double vision Respiratory: No cough Cardiovascular: chest pain; No edema, No palpitations Gastrointestinal: No abdominal pain, No diarrhea, No nausea, No vomiting Genitourinary: No decreased output, No discharge Musculoskeletal: muscle pain, other (rib pain) Skin: No change in color, No change in hair/nails Psychiatric/Neurological: Denies Anxiety Hematologic/Lymphatic: Denies Anemia All Other Systems Reviewed Negative Unless Noted: Yes Past Yjhmurh-Lsarkp-Rwdmtc Hx Patient Social History Tobacco Use?: Yes Use of E-Cig and/or Vaping dev: Yes E-Cig or Vaping type used: Nicotine Substance use?: No Alcohol Use?: No Immunizations Up To Date Tetanus Booster (TDap): Unknown Seasonal Allergies Seasonal Allergies: No Past Medical History Surgery/Hospitalization HX: ENDOMETRIOSIS, PCOS LUNG/ 69 RIB SURGERIES, TONSILS, RONN, LAST RIB SURGERY 08/25/22 Surgeries: Yes (several for slipping rib syndrome) Gallbladder, Tonsillectomy Respiratory: No Currently Using CPAP: No Currently Using BIPAP: No Cardiac: No Neurological: No Last Menstrual Period: Dec 01, 2022 Female Reproductive Disorders: Denies Sexually Transmitted Disease: No HIV/AIDS: No Genitourinary: No Gastrointestinal: Yes (n&v) Gastroesophageal Reflux Musculoskeletal: Yes ((slipped rib syndrome)) Endocrine: No HEENT: No Loss of Vision: Denies Hearing Impairment: Denies Cancer: No Psychosocial: No Integumentary: No Blood Disorders: No Family Medical History No Pertinent Family Hx Physical Exam Vital Signs Vital Signs - First Documented 12/01/22 15:45 Temp 36.8 Pulse 111 Resp 22 B/P (MAP) 133/73 (93) Pulse Ox 98 O2 Delivery Room Air Capillary Refill : Less Than 3 Seconds Height, Weight, BMI Height: 5'4.00" Weight: 125lbs. oz. 56.646030wa; 21.00 BMI Method:Stated General Appearance: No Apparent Distress, WD/WN Eyes: Bilateral Eye Normal Inspection, Bilateral Eye PERRL, Bilateral Eye EOMI HEENT: PERRL/EOMI, TMs Normal, Normal ENT Inspection Neck: Full Range of Motion, Normal Inspection, Non Tender, Supple Respiratory: Other (Left upper rib tenderness. No swelling, erythema or crepitus. Lung sounds clear bilateral) Cardiovascular: No Edema, No Gallop, No JVD, Tachycardia Gastrointestinal: Normal Bowel Sounds, No Organomegaly, No Pulsatile Mass, Non Tender Back: Normal Inspection, No CVA Tenderness, No Vertebral Tenderness Extremity: Normal Capillary Refill, Normal Inspection, Normal Range of Motion, Non Tender Neurologic/Psychiatric: Alert, Oriented x3, No Motor/Sensory Deficits, Normal Mood/Affect, digital sales director II-XII Norm as Tested Skin: Normal Color, Warm/Dry Progress/Results/Core Measures Suspected Sepsis SIRS Temperature: Pulse: 111 Respiratory Rate: 22 Blood Pressure 133 /73 Mean: 93 Results/Orders My Orders Orders - LONA VOGT Chest Pa/Lat (2 View) (12/01/22 15:53) Ketorolac Injection (Toradol Injection) (12/01/22 16:00) Orphenadrine Inj (Ed Only) (Norflex Inje (12/01/22 16:00) Hydrocodone/Apap 5/325 Tablet (Lortab 5 (12/01/22 16:45) Medications Given in ED Current Medications Medications Dose Ordered Sig/Krunal Route Start Time Stop Time Status Last Admin Dose Admin Acetaminophen/ Hydrocodone Bitart 1 ea ONCE ONCE PO 12/01/22 16:45 12/01/22 16:46 DC 12/01/22 16:44 1 EA Ketorolac Tromethamine 30 mg ONCE ONCE IM 12/01/22 16:00 12/01/22 16:01 DC 12/01/22 16:00 30 MG Orphenadrine Citrate 60 mg ONCE ONCE IM 12/01/22 16:00 12/01/22 16:01 DC 12/01/22 16:00 60 MG Vital Signs/I&O 12/01/22 12/01/22 12/01/22 15:45 16:00 16:44 Temp 36.8 36.8 36.8 Pulse 111 Resp 22 B/P (MAP) 133/73 (93) Pulse Ox 98 O2 Delivery Room Air Capillary Refill : Less Than 3 Seconds Blood Pressure Mean: 93 Departure Communication (PCP) Previous ER visits, H&P, lab testing. Differential diagnosis chronic rib pain, pneumothorax. Patient with multiple surgeries to her ribs secondary to slipping rib syndrome. Last surgery in August in [place]. Pain over the past 4 days. No trauma or fall. No shortness of breath. She is tachycardic but tearful. Chest x-ray was ordered to rule out pneumothorax due to her multiple surgeries. History of pneumothorax according to patient. Chest x-ray was unremarkable. She did receive Toradol and Norflex with some improvement. Started continue having pain again and she was given 1 dose of hydrocodone. Pain improved. She does follow Kathleen Claire. Will discharge with a few days with Toradol. Do not take other anti-inflammatories with. Further evaluation for her pain by her pcp. Will not refill her hydrocodone. No known cardiac history. She does not appear toxic or septic. Impression Primary Impression: Rib pain Disposition: HOME, SELF-CARE Condition: Stable Departure-Patient Inst. Decision time for Depature: 16:33 Referrals: CLAIRE CLAIRE DO (PCP) Primary Care Physician KATHLEEN CLAIRE DNP (Family) Primary Care Physician [facility] [place] Patient Instructions: Chest Pain That Is Not Caused by the Heart (DC) Add. Discharge Instructions: recommend following up with your primary care physician for further pain control. All discharge instructions reviewed with patient and/or family. Voiced understanding. Scripts Ketorolac Tromethamine (Ketorolac Tromethamine) 10 Mg Tablet 10 MG PO TID, #15 TAB Prov: LONA VOGT 12/01/22 LONA VOGT Dec 01, 2022 16:03
--- NOTE | 2022-12-01 16:18 | Diagnostic Imaging Report ---
EXAMINATION: Chest 2 view HISTORY: left sided chest pain COMPARISON: 04/01/2022 FINDINGS: The lungs are clear without edema or pneumonia. No pleural effusion or pneumothorax. Heart size is normal. There are multiple rib plates. IMPRESSION: 1. Clear lungs. Dictated by: Dictated on workstation # [id number]
[2022-12-01] MEDS ORDERED: HYDROcodone/APAP 5 MG/325 MG (LORTAB) TAB PO ONE (16:45)
[2022-12-01] MEDS ORDERED: KETO10TA PO ×2 (16:56→17:08)
[2022-12-01 17:00] VITALS: BP 133/73
== END 2022-12-01 17:00 | disposition home or self-care (01) ==
LOC: EDUNIT# 15:37 → ER 15:39
DX: R07.81 Pleurodynia (principal); F17.290 Nicotine dependence, other tobacco product, uncomplicated; Z98.890 Other specified postprocedural states
CPT/HCPCS: 71046

== ENCOUNTER 2022-12-03 13:08 | Emergency (ER) | payer BC ==
[~2022-12-03] VITALS: Ht 162 cm; Wt 60.8 kg
[2022-12-03 13:15] VITALS: BP 111/66
[2022-12-03] MEDS ORDERED: OXYC1TAB87 PO (14:53)
--- NOTE | 2022-12-03 14:54 | ED General ---
General Chief Complaint: Chest Wall Stated Complaint: UPPER RIB PAIN Nursing Triage Note: Patient ambulatory to ft3 w c/o bilateral upper rib pain. Patient states she was diagnosed with Thoracic Outlet Syndrome 2 days ago. 68 rib surgeries since 14yrs old. Source of Information: Patient Exam Limitations: No Limitations History of Present Illness Date Seen by Provider: Dec 03, 2022 Time Seen by Provider: 14:20 Initial Comments This 22-year-old young lady presents to the emergency room with complaints of chronic chest pain. She has had numerous surgeries for rib deformities/pathologies. She has seen Dr. Drake for chronic pain but he does not prescribe pain medications for her. She reports her primary care provider, Kathleen Strauss, does not prescribe medication for her chronic pain. She reports medications intended for neuropathic pain are not well-tolerated including gabapentin and Cymbalta. She states NSAIDs are not particularly effective but do relieve the pain minimally. She had a CT scan performed recently and states that a specialist at an outside facility believes she had thoracic outlet syndrome. She has pain and numbness that radiates into her upper extremities bilaterally. Vest Baster strength and radial pulses are intact bilaterally. Patient is tearful and seems in distress. Allergies and Home Medications Allergies Uncoded Allergies: "ANY NERVE MEDICATION" (Adverse Reaction, Intermediate, 12/01/22) TREMORS Patient Home Medication List Home Medication List Reviewed: Yes Hydrocodone/Acetaminophen (Hydrocodone-Acetamin 5-325 mg) 1 Each Tablet, 1-2 TAB PO Q4H PRN for PAIN-MODERATE (5-7) Prescribed by: MAXIMILIAN TURCIOS on 07/12/21 1348 Hydrocodone/Acetaminophen (Hydrocodone-Acetamin 5-325 mg) 5 Mg-325 Mg Tablet, 1 TAB PO Q4H PRN for PAIN-MODERATE (5-7) Prescribed by: JAY JAY RINCON on 04/01/22 1503 Ketorolac Tromethamine (Ketorolac Tromethamine) 10 Mg Tablet, 10 MG PO TID Prescribed by: HAYES CANTU MD on 10/10/22 1639 Ketorolac Tromethamine (Ketorolac Tromethamine) 10 Mg Tablet, 10 MG PO TID Prescribed by: MAXIMILIAN TURCIOS on 12/01/22 1708 Metoclopramide HCl (Reglan) 5 Mg Tablet, 5 MG PO QID Prescribed by: BRIGID ARRIAGA on 08/09/19 1243 Oxycodone HCl/Acetaminophen (Percocet 5-325 mg Tablet) 1 Each Tablet, 1 TAB PO Q6H Prescribed by: REANNA CASTILLO on 12/03/22 1454 Pantoprazole Sodium (Protonix) 40 Mg Tablet.dr, 40 MG PO DAILY Prescribed by: BRIGID ARRIAGA on 08/09/19 1243 [bcp] , 1 TAB PO DAILY, (Reported) Entered as Reported by: SAVITA ROCK on 08/08/19 0927 Discontinued Medications Ketorolac Tromethamine (Ketorolac Tromethamine) 10 Mg Tablet, 10 MG PO TID Prescribed by: MAXIMILIAN TURCIOS on 12/01/22 1656 Review of Systems Review of Systems Constitutional: no symptoms reported EENTM: no symptoms reported Respiratory: no symptoms reported Cardiovascular: no symptoms reported Gastrointestinal: no symptoms reported : No LMP: Dec 03, 2022 Musculoskeletal: see HPI Skin: no symptoms reported Psychiatric/Neurological: See HPI Hematologic/Lymphatic: No Symptoms Reported Immunological/Allergic: no symptoms reported Past Iwafrei-Hsrfpk-Hcegvd Hx Patient Social History Use of E-Cig and/or Vaping dev: Yes E-Cig or Vaping type used: Nicotine Substance use?: No Alcohol Use?: No Immunizations Up To Date Tetanus Booster (TDap): Unknown Seasonal Allergies Seasonal Allergies: No Past Medical History Surgery/Hospitalization HX: ENDOMETRIOSIS, PCOS LUNG/ 69 RIB SURGERIES, TONSILS, RONN, LAST RIB SURGERY 08/25/22 Surgeries: Yes (several for slipping rib syndrome) Gallbladder, Tonsillectomy Respiratory: No Currently Using CPAP: No Currently Using BIPAP: No Cardiac: No Neurological: No : No Last Menstrual Period: Dec 03, 2022 Female Reproductive Disorders: Denies Sexually Transmitted Disease: No HIV/AIDS: No Genitourinary: No Gastrointestinal: Yes (n&v) Gastroesophageal Reflux Musculoskeletal: Yes ((slipped rib syndrome), chronic musculoskeletal chest pain) Endocrine: No HEENT: No Loss of Vision: Denies Hearing Impairment: Denies Cancer: No Psychosocial: No Integumentary: No Blood Disorders: No Family Medical History No Pertinent Family Hx Physical Exam Vital Signs Vital Signs - First Documented 12/03/22 13:15 Temp 36.5 Pulse 126 Resp 18 B/P (MAP) 111/66 (81) Pulse Ox 98 O2 Delivery Room Air Capillary Refill : Less Than 3 Seconds Height, Weight, BMI Height: 5'4.00" Weight: 125lbs. oz. 56.528214dn; 23.00 BMI Method:Stated General Appearance: WD/WN, Moderate Distress (Very tearful and upset) HEENT: Normal ENT Inspection Neck: Normal Inspection Respiratory: Lungs Clear, Normal Breath Sounds, No Accessory Muscle Use, Other (Anterior chest wall tender to palpation) Cardiovascular: Regular Rate, Rhythm, No Edema, No Murmur Gastrointestinal: Normal Bowel Sounds, Non Tender Extremity: Normal Inspection, Non Tender Neurologic/Psychiatric: Alert, Oriented x3, No Motor/Sensory Deficits, Other (Tearful, stressed) Skin: Normal Color, Warm/Dry Progress/Results/Core Measures Suspected Sepsis SIRS Temperature: Pulse: 126 Respiratory Rate: 18 Blood Pressure 111 /66 Mean: 81 Results/Orders My Orders Orders - REANNA ABDUL MD Ketorolac Injection (Toradol Injection) (12/03/22 15:00) Oxycodone/Apap 5/325mg Tablet (Percocet (12/03/22 15:00) Vital Signs/I&O 12/03/22 13:15 Temp 36.5 Pulse 126 Resp 18 B/P (MAP) 111/66 (81) Pulse Ox 98 O2 Delivery Room Air Capillary Refill : Less Than 3 Seconds Blood Pressure Mean: 81 Progress Note : Progress Note I have little to offer this patient during an ER visit other than short-term pain management. She was offered Toradol and a dose of Percocet which she accepted. A short-term prescription was also provided. See discharge instructions. Departure Impression Primary Impression: Chronic pain Qualified Codes: G89.29 - Other chronic pain Disposition: 01 HOME, SELF-CARE Condition: Improved Departure-Patient Inst. Decision time for Depature: 14:50 Referrals: CLAIRE STRAUSS DO (PCP) Primary Care Physician KATHLEEN STRAUSS DNP (Family) Primary Care Physician Patient Instructions: CHRONIC PAIN Add. Discharge Instructions: You may continue taking ibuprofen up to 600 mg every 6 hours as needed for primary pain control. Add Percocet as prescribed for breakthrough pain. Establish with a primary care provider or pain management clinic for chronic pain management. Return to care if you have worsening symptoms despite following these instructions. All discharge instructions reviewed with patient and/or family. Voiced understanding. Scripts Oxycodone HCl/Acetaminophen (Percocet 5-325 mg Tablet) 1 Each Tablet 1 TAB PO Q6H for PAIN-MODERATE MDD 6 TABS, #12 TAB Prov: REANNA ABDUL MD 12/03/22 Copy Copies To 1: CLAIRE STRAUSS JOSHUA T MD Dec 03, 2022 14:54
[2022-12-03] MEDS ORDERED: KETOROLAC 30 MG/ML VIAL IM ONE (15:00)
[2022-12-03] MEDS ORDERED: oxyCODONE/APAP 5/325MG (PERCOCET 5) TABLET PO ONE (15:00)
== END 2022-12-03 14:58 | disposition home or self-care (01) ==
LOC: EDUNIT# 13:08 → ER 13:11
DX: R07.81 Pleurodynia (principal); G89.29 Other chronic pain; F17.290 Nicotine dependence, other tobacco product, uncomplicated; Z28.310 Unvaccinated for COVID-19
CPT/HCPCS: 99284

== ENCOUNTER 2023-01-23 10:40 | Emergency (ER) | payer BC ==
[~2023-01-23] VITALS: Ht 162 cm; Wt 60.8 kg
[~2023-01-23 10:40] MED LIST changes: +OXYC1TAB87 PO
--- NOTE | 2023-01-23 11:05 | ED General ---
General Chief Complaint: Post OP Complications/Pain Stated Complaint: POST OP LT RIB PAIN Nursing Triage Note: PT STATES SHE HAD RIB 8 SURGERY ON 01/20/23 AND IS HAVING POST OP PAIN, HX OF SLIPPING RIB SYNDROME WITH SEVERAL SURGERIES Source of Information: Patient Exam Limitations: No Limitations History of Present Illness Date Seen by Provider: Jan 23, 2023 Time Seen by Provider: 10:53 Initial Comments This 22-year-old young lady presents to the emergency room by private vehicle with concerns about postoperative pain in the left chest. She has had 2 surgeries since I last saw her in this emergency room. The first surgery was performed in [place] on January 09 and the second was performed in [place] on January 20. The procedure on January 20 involved revision of a bone graft plate on the left eighth rib. She has an incision at this level on the left lateral anterior chest wall. She received 15 Percocet at the time of discharge from the hospital. She is not presently established with a primary care provider or supervisor painting shipyard. She has run out of her pain medication and is having rebound pain. She does not believe her pain is out of proportion to her historical postoperative pain. She simply needs additional treatment to get her through the recovery. She has a history of numerous thoracic surgeries for musculoskeletal problems and chronic pain. Allergies and Home Medications Allergies Uncoded Allergies: "ANY NERVE MEDICATION" (Adverse Reaction, Intermediate, 12/01/22) TREMORS Patient Home Medication List Home Medication List Reviewed: Yes Hydrocodone/Acetaminophen (Hydrocodone-Acetamin 5-325 mg) 1 Each Tablet, 1-2 TAB PO Q4H PRN for PAIN-MODERATE (5-7) Prescribed by: MAXIMILIAN TURCIOS on 07/12/21 1348 Hydrocodone/Acetaminophen (Hydrocodone-Acetamin 5-325 mg) 5 Mg-325 Mg Tablet, 1 TAB PO Q4H PRN for PAIN-MODERATE (5-7) Prescribed by: JAY JAY RINCON on 04/01/22 1503 Ketorolac Tromethamine (Ketorolac Tromethamine) 10 Mg Tablet, 10 MG PO TID Prescribed by: HAYES CANTU MD on 10/10/22 1639 Ketorolac Tromethamine (Ketorolac Tromethamine) 10 Mg Tablet, 10 MG PO TID Prescribed by: MAXIMILIAN TURCIOS on 12/01/22 1708 Metoclopramide HCl (Reglan) 5 Mg Tablet, 5 MG PO QID Prescribed by: BRIGID ARRIAGA on 08/09/19 1243 Oxycodone HCl/Acetaminophen (Percocet 5-325 mg Tablet) 1 Each Tablet, 1 TAB PO Q6H Prescribed by: REANNA CASTILLO on 12/03/22 1454 Oxycodone HCl/Acetaminophen (Percocet 5-325 mg Tablet) 1 Each Tablet, 1 TAB PO Q4H PRN for PAIN BREAKTROUGH Prescribed by: REANNA CASTILLO on 01/23/23 1405 Pantoprazole Sodium (Protonix) 40 Mg Tablet.dr, 40 MG PO DAILY Prescribed by: BRIGID ARRIAGA on 08/09/19 1243 [bcp] , 1 TAB PO DAILY, (Reported) Entered as Reported by: SAVITA ROCK on 08/08/19 0927 Review of Systems Review of Systems Constitutional: no symptoms reported EENTM: no symptoms reported Respiratory: other (Pain with inspiration) Cardiovascular: no symptoms reported Gastrointestinal: no symptoms reported Genitourinary: no symptoms reported : No Musculoskeletal: see HPI Skin: see HPI Psychiatric/Neurological: No Symptoms Reported Hematologic/Lymphatic: No Symptoms Reported Past Mgswbha-Hkhoei-Kgoays Hx Patient Social History Tobacco Use?: No Use of E-Cig and/or Vaping dev: Yes E-Cig or Vaping type used: Nicotine Substance use?: No Alcohol Use?: No Immunizations Up To Date Tetanus Booster (TDap): Unknown Seasonal Allergies Seasonal Allergies: No Past Medical History Surgery/Hospitalization HX: ENDOMETRIOSIS, PCOS LUNG/ 71 RIB SURGERIES, TONSILS, RONN, LAST RIB SURGERY 01/20/23 Surgeries: Yes (several for slipping rib syndrome) Gallbladder, Tonsillectomy Respiratory: No Currently Using CPAP: No Currently Using BIPAP: No Cardiac: No Neurological: No Last Menstrual Period: Dec 31, 2022 Female Reproductive Disorders: Denies Sexually Transmitted Disease: No HIV/AIDS: No Genitourinary: No Gastrointestinal: Yes (n&v) Gastroesophageal Reflux Musculoskeletal: Yes ((slipped rib syndrome), chronic musculoskeletal chest pain) Endocrine: No HEENT: No Loss of Vision: Denies Hearing Impairment: Denies Cancer: No Psychosocial: No Integumentary: No Blood Disorders: No Family Medical History No Pertinent Family Hx Physical Exam Vital Signs Vital Signs - First Documented 01/23/23 10:51 Temp 37.0 Pulse 117 Resp 18 B/P (MAP) 134/80 (98) Pulse Ox 99 O2 Delivery Room Air Capillary Refill : Less Than 3 Seconds Height, Weight, BMI Height: 5'4.00" Weight: 125lbs. oz. 56.307223ym; 23.00 BMI Method:Stated General Appearance: WD/WN, Mild Distress, Thin HEENT: Normal ENT Inspection Neck: Normal Inspection Respiratory: Lungs Clear, Normal Breath Sounds, No Accessory Muscle Use Cardiovascular: Regular Rate, Rhythm, No Edema, No Murmur Gastrointestinal: Non Tender, Soft Neurologic/Psychiatric: Alert, Oriented x3, No Motor/Sensory Deficits, Normal Mood/Affect Skin: Normal Color, Warm/Dry, Other (Incision clean, dry, and intact and appears appropriate for postoperative stage.) Progress/Results/Core Measures Suspected Sepsis SIRS Temperature: Pulse: 117 Respiratory Rate: 18 Blood Pressure 134 /80 Mean: 98 Results/Orders My Orders Orders - REANNA ABDUL MD Ketorolac Injection (Toradol Injection) (01/23/23 11:15) Oxycodone/Apap 5/325mg Tablet (Oxycodon (01/23/23 11:15) Medications Given in ED Vital Signs/I&O 01/23/23 01/23/23 01/23/23 01/23/23 10:51 11:13 11:14 11:30 Temp 37.0 37.0 37.0 37.0 Pulse 117 117 Resp 18 18 B/P (MAP) 134/80 (98) 126/90 Pulse Ox 99 99 O2 Delivery Room Air Room Air Capillary Refill : Less Than 3 Seconds Blood Pressure Mean: 98 Progress Note : Progress Note Patient was interviewed and examined by me at 1053 during triage. Pain was reported as 9/10 at that time. She was offered Toradol which she accepted. She also received a dose of Percocet in the ER. Prescription was also provided. As I have done previously, I again stressed the importance that she be established with a primary care provider and a supervisor painting shipyard as the ER is not the most appropriate place to manage her chronic pain issues. She expressed understanding. See discharge instructions for further discussion. There was a technical downtime of the E prescribing system for controlled s ubstances. A physical handwritten prescription was provided to the patient as a substitute after this encounter. I discussed the issue with [facility] as there was a documented technical problem with the software. Departure Impression Primary Impression: Postoperative pain Additional Impression: Chronic chest pain Disposition: HOME, SELF-CARE Condition: Improved Departure-Patient Inst. Decision time for Depature: 11:04 Referrals: NO,LOCAL PHYSICIAN (PCP/Family) Primary Care Physician Patient Instructions: Chronic pain Add. Discharge Instructions: You may use ibuprofen up to 600 mg every 6 hours as needed for primary pain control. Then add either Tylenol (acetaminophen) or Percocet as prescribed for breakthrough pain. Establish with a primary care provider and/or supervisor painting shipyard soon as possible to continue treatment of chronic pain and other general health problems. Return to care if you have worsening symptoms despite following these instructions. Scripts Oxycodone HCl/Acetaminophen (Percocet 5-325 mg Tablet) 1 Each Tablet 1 TAB PO Q4H PRN for PAIN BREAKTROUGH MDD 6 TABS, #20 TAB Prov: REANNA ABDUL MD 01/23/23 REANNA ABDUL MD Jan 23, 2023 11:05
[2023-01-23] MEDS ORDERED: oxyCODONE/ACETAMINOPHEN 5/325MG TABLET PO ONE (11:15)
[2023-01-23] MEDS ORDERED: KETOROLAC INJ 30 MG/ML VIAL IM ONE (11:15)
[2023-01-23 11:30] VITALS: BP 126/90
[2023-01-23] MEDS ORDERED: OXYC1TAB87 PO (14:04)
== END 2023-01-23 11:30 | disposition home or self-care (01) ==
LOC: EDUNIT# 10:40 → ER 10:44
DX: R07.89 Other chest pain (principal); G89.18 Other acute postprocedural pain; G89.29 Other chronic pain; F17.290 Nicotine dependence, other tobacco product, uncomplicated
CPT/HCPCS: 99284